=== PATIENT | female | born 1990 | race Caucasian/White ===

== ENCOUNTER 2019-09-14 13:43 | Outpatient (CLI) | payer OTHER, SELFPAY ==
--- NOTE | 2019-09-14 14:13 | ECHO_ITS ---
Patient Info Name: Sammie Rodriguez Age: 29 years : 1990 Gender: Female Ht: 59 in Wt: 128 lbs BSA: 1.57 m2 HR: 87 bpm BP: 121 / 81 mmHg Technical Quality: Good Exam Date: 09/14/2019 2:27 PM Exam Location: [facility] Patient Status: Outpatient Admit Date: 09/14/2019 Staff Ordering Physician: Gladys Chen PAC Apprentice Stylist: Anayeli Ramirez RDCS Attending Provider: Gladys Chen PAC Referring Physician: Gustavo LOW; Exam Type: CA echo doppler color flow Study Info Indications - SOB Complete two-dimensional, color flow and Doppler transthoracic echocardiogram is performed. Summary 1. Left ventricular chamber dimension is normal. 2. Left ventricular systolic function is normal, estimated at 65-70%. 3. The left ventricular diastolic function is normal. 4. E/e' 5 is not elevated. 5. There is trace tricuspid valve regurgitation. 6. No pulmonary hypertension, estimated pulmonary arterial systolic pressure is 25 mmHg. Left Ventricle E/e' 5 is not elevated. Left ventricular chamber dimension is normal. Left ventricular systolic function is normal, estimated at 65-70%. The left ventricular diastolic function is normal. Right Ventricle Right ventricular chamber dimension is normal. Right ventricular systolic function is normal. Left Atria Left atrial chamber dimension is normal. Right Atria Right atrial chamber dimension is normal. Aortic Valve The aortic valve is trileaflet. There is no aortic valve stenosis. There is no aortic valve regurgitation. Pulmonic Valve There is no pulmonic regurgitation. Mitral Valve There is no mitral valve stenosis. There is no mitral valve regurgitation. Tricuspid Valve There is trace tricuspid valve regurgitation. No pulmonary hypertension, estimated pulmonary arterial systolic pressure is 25 mmHg. Pericardium/Pleural There is no pericardial effusion. Inferior Vena Cava Normal inferior vena cava with >50% collapse upon inspiration consistent with normal right atrial pressure, 5 mmHg. Aorta The aortic root size at the sinus of Valsalva is normal. Left Ventricular Outflow Tract Name Value Normal LVOT 2D LVOT Diameter 2.0 cm LVOT Doppler LVOT Peak Gradient 5 mmHg LVOT Mean Gradient 3 mmHg LVOT VTI 22 cm LVOT VTI/AV VTI Ratio 0.9 LVOT Stroke Volume 68 ml LVOT CO 16.0 l/min LVOT CI 10.2 l/min/m2 Pulmonic Valve Name Value Normal PV Doppler PV Peak Gradient 3 mmHg Mitral Valve Name Value Normal
--- NOTE | 2019-09-17 12:35 | WPDHOLTEREM ---
Holter/Event Monitor Holter/Event Monitor Date of procedure: 09/14/19 Procedure Type: 24 hour holter monitor Indications: Palpitations Conclusion: 1. 24 hour holter monitor on 09/14/19. 2. Underlying rhythm is sinus rhythm. HR range 45-150 bpm; average HR 81 bpm. 3. There are no premature supraventricular complexes. No supraventricular tachycardia. 4. There is on premature ventricular complex. No ventricular tachycardia. 5. No sinoatrial blocks. Second degree AV block, type I (Wenkebach) at 01:52. No significant pauses greater than 2 seconds. 6. Patient reports symptoms of chest pain, palpitations, racing heart, shortness of breath and dizziness which demonstrate Sinus rhythm, HR range 54-98 bpm
== END 2019-09-14 13:44 | disposition home or self-care (01) ==
PROVIDERS: PCP Family Medicine; Visit Provider Physician Assistant Medical
DX: R00.2 Palpitations (principal); R06.02 Shortness of breath; Z86.79 Personal history of other diseases of the circulatory system
CPT/HCPCS: 93225; 93226; 93306

== ENCOUNTER → 2021-06-12 07:01 | Outpatient (CLI) | payer BC, SELFPAY ==
--- NOTE | ~2021-06-12 | XR_ITS ---
EXAMINATION: XR knee RT 2V DATE: 06/12/2021 07:43 INDICATION: Right knee pain. TECHNIQUE: 2 views of right knee standing were obtained. COMPARISON: None. FINDINGS: Bone alignment is normal. No fracture. Joint spaces are well maintained. There is no knee j oint effusion. IMPRESSION: 1. Normal right knee. Reviewed, dictated and finalized at location A. IMPRESSION: 1. Normal right knee.
--- NOTE | ~2021-06-12 | XR_ITS ---
EXAMINATION: XR knee LT 2V DATE: 06/12/2021 07:43 INDICATION: Left knee pain. TECHNIQUE: 2 views of left knee standing were obtained. COMPARISON: None. FINDINGS: Bone alignment is normal. No fracture. Joint spaces are well maintained. There is no knee j oint effusion. IMPRESSION: 1. Normal left knee. Reviewed, dictated and finalized at location A. IMPRESSION: 1. Normal left knee.
== END ==
PROVIDERS: PCP Family Medicine; Visit Provider Nurse Practitioner Family
DX: M25.561 Pain in right knee (principal); M25.562 Pain in left knee
CPT/HCPCS: 73560

== ENCOUNTER → 2021-09-13 14:41 | Outpatient (CLI) | payer BC, SELFPAY ==
--- NOTE | ~2021-09-13 | MR_ITS ---
EXAMINATION: MR knee LT wo con DATE: 09/13/2021 15:08 INDICATION: Left knee pain TECHNIQUE: Magnetic resonance imaging (MRI) of the left knee was performed without intravenous contra st. Sequences included coronal PD-weighted FSE, coronal PD-weighted FS FSE, sagittal T2-weighted FSE , sagittal PD-weighted FS FSE and axial PD weighted fat saturated FSE. COMPARISON: None. FINDINGS: Medial compartment: Medial meniscus is normal. Articular cartilage is normal. Lateral compartment: Lateral meniscus is normal. Articular cartilage is normal. Patellofemoral compartment: Heterogeneous cartilage signal suggesting partial thickness fissuring at the medial patellar facet wi thout degenerative subchondral changes. Trochlear cartilage is normal. Ligaments and tendons: Anterior and posterior cruciate ligaments are normal. The medial collateral ligament and fibular sierra ateral ligament complex are normal. The extensor mechanism is normal. The visualized medial and later al hamstring tendons as well as the iliotibial band are normal. Fluid: Physiologic amount of fluid in the joint space. No loose osteochondral bodies identified. Osseous/other: Normal marrow signal. No fracture or pathologic marrow replacing process. IMPRESSION: 1. Heterogeneous cartilage signal suggesting partial thickness chondral fissuring at the medial dasilva lar facet. Otherwise unremarkable left knee MRI. Reviewed, dictated and finalized at location A. IMPRESSION: 1. Heterogeneous cartilage signal suggesting partial thickness chondral fissuri ng at the medial patellar facet. Otherwise unremarkable left knee MRI.
== END ==
PROVIDERS: PCP Family Medicine; Visit Provider Nurse Practitioner Family
DX: M25.562 Pain in left knee (principal)
CPT/HCPCS: 73721

== ENCOUNTER 2021-10-02 13:13 | Outpatient (CLI) | payer BC, SELFPAY | END 2021-10-02 13:14 | disposition home or self-care (01) | LOC: ANHAUDIO 13:15 | PROVIDERS: PCP Family Medicine; Visit Provider Nurse Practitioner Family | DX: H91.90 Unspecified hearing loss, unspecified ear (principal) | CPT/HCPCS: 92557; 92567 ==

== ENCOUNTER 2024-05-22 12:19 | Outpatient (CLI) | payer OTHER, SELFPAY ==
--- NOTE | ~2024-05-22 | MM_ITS ---
EXAMINATION: MM diagnostic nasir BI w sahil HISTORY: Areas of tissue thickening TECHNIQUE: 3-D tomosynthesis images of the breasts were performed and synthetic 2-D images were gener ated. CAD analysis was submitted and interpreted. COMPARISON: None BREAST PARENCHYMAL COMPOSITION:Dense: The breasts are extremely dense, which lowers the sensitivity o f mammography. FINDINGS: No suspicious mass lesion or distortion seen in either breast. No suspicious microcalcifica tion. IMPRESSION: No mammographic evidence for malignancy. If there are true palpable abnormalities clinically, then fo llow-up targeted ultrasound would be advised. BI-RADS Category 1: Negative Reviewed, dictated and finalized at location M. IMPRESSION: No mammographic evidence for malignancy. If there are true palpable abnormaliti es clinically, then follow-up targeted ultrasound would be advised. BI-RADS Category 1: Negative
--- OUTSIDE RECORDS SUMMARY | 2024-05-22 12:33 | XMS_ITS | Continuity of Care Document ---
Author Organization [facility] Address [address] [place] [address] Phone Care Team Providers Care Plaster Patternmaker Name Role Phone Prashant ZHENG, Savita Unavailable Unavailable Kostas ROSARIO, Kyra Unavailable Unavailable Advance Directives Directive Yes / No Effective Date File Name No Information Encounters Encounter Description Practice Location Reason(s) For Visit Diagnoses Date Provider Providers Copied on Encounter [facility] [address], [place], [place], [id number], tel:[phone] [facility] No Information Prashant Barney. [address], [place], [place], [id number], . tel:[phone] Consulting Provider: Kyra Kenyon, [address], [place], [address]. tel:[phone] Family History Family Member Type Diagnosis Age At Onset No Information Payers Payer name Insurance type Covered republican ID Authoriza tion(s) No Information Social History Type Description Quantity Date Captured Comments Sex Female Smoking Status No Information Chief Complaint And Reason For Visit No Information Reason For Referral Reason For Referral No Information History Of Present Illness Encounter Date Complaint History Of Prese nt Illness No Information Functional Status Date Functional Assessmen t No Information Instructions Date Instruction Additional Infor mation No Information Assessments Type Assessment Date No Information Patient Care Teams Name Effective Dates (start - stop) Status Members No Information
--- OUTSIDE RECORDS SUMMARY | 2024-05-22 12:34 | XMS_ITS | Data Portability ---
Author Organization [facility] Wade Address [address] [place] [address] [place] [address] Care Team Providers Care Refractory Specialist Name Role Phone JESSICA ULLOA Primary Care Provider Assessment Encounter Date Assessment Date Assessment LastModified by Organization Details LastModified Time 10/15/2022 10/15/2022 Annual gynecological exam performed. Patient will come back in a year unless there are new symptoms. [email or web address] Not available 10/15/2022 15:34:47 05/08/2024 05/08/2024 Annual gynecological exam performed. Patient will come back in a year unless there are new symptoms. [email or web address] Not available 05/08/2024 12:25:46 Plan of Treatment Reminders Order Date Submit Date Provider Last Modified By Organization Details Last Modified Time Details Appointments None recorded. Lab None recorded. Referral None recorded. Procedures None recorded. Surgeries None recorded. Imaging MAMMO, diagnostic , digital, bilateral - bilateral breast lumps around 12 oclock [address], [address] Anjum Tillman, [facility] [address], [place], [address], 11:09:10 US, breast, bilateral, complete [address], [address] Anjum Till[address], [address], [place], [address], 11:09:11 Medication Orders None recorded. Patient TargetsNo targets recorded. Patient InstructionsNo instructions recorded. Reason for Referral None Reported. Results Created Date Observation Date Name Description Value Unit Range Abnormal Flag Note LastModifiedBy Organization Detail LastModifiedTime 03/13/19 22 03/13/2021 SURGI GERDA PATHO LOGY surgical pathology SEE RESULT S BELOW CASE REPOR T: Surgi gerda Patho logy Repor t Case: [id number] Autho charline saucedo Provi abdi: Christina Steinberg MoeTab, CNPhoebe Colle cted: 03/13 1202 Order ing Locat ion: [place] Patho logy Recei chichi: 03/14 0244 Patho logis t: Saleem Griffin MD Speci mens: A) - Vulva , Left, Left vulva at 8 o'mega ck B) - Vulva , Right , Right vulva at 2 o'mega ck FINAL DIAGN OSIS: A. Left vulva , 8:00, biops y: -Sebo rrhei c kerat osis. B. Right vulva , 12:00 , biops y: -Sebo rrhei c kerat osis. Elect sandor bennett by Saleem Griffin MD on 022 at 3:40 PM ----- ----- ----- ----- ----- ----- ----- ----- ----- ----- ----- ----- ----- ----- ----- ----- ----- ---- CLINI GERDA INFOR MATIO N: NOT PROVI DED MICRO SCOPI C DESCR IPTIO N: A micro scopi c exami natio n was perfo rmed. GROSS DESCR IPTIO N: A. Vulva , Left. The speci men is label ed with the patie nt's name, tad moore and L vulva r 8:00 . Recei chichi in forma angi is a 0.5 cm piece of white -spangler tissu e. The entir e speci men is submi tted in one casse tte. Gross ed by Gino saini B. Vulva , Right . The speci men is label ed with the patie nt's name, tad moore and R vulva 2:00 . Recei chichi in forma angi is a 0.5 cm piece of white -spangler tissu e. The entir e speci men is submi tted in one casse tte. Gross ed by Gino saini Not Available [facility] (Lab) [address], [place], [address], 03/15/2021 16:42:07 10/16/19 23 10/15/2022 IMAGE GUIDE D PAP AND HPV REGAR DLESS image guided Pap, HPV regardless of Pap result SEE RESULT S BELOW CASE REPOR T: Cytol ogy Gynec ologi gerda Repor t Case: [id number] Autho charline saucedo Provi abdi: Linnea Fowler NP Colle cted: 10/15 1547 Order ing Locat ion: [place] Patho logy Recei chichi: 10/16 0756 First Scree n: Alphonse anaya, Sal lindsay, CT Speci men: Scree ed Pap - Image d, Cervi x STATE MENT OF ADEQU ACY: Satis facto ry for evalu ation Trans forma tion zone compo nent prese nt FINAL DIAGN OSIS: Negat henry for Intra epith elial Amelia herr or Yamilex corcoran (NIL) . Elect sandor ernst franklyn d by Sal Garcia, CT on 023 at 4:52 PM ----- ----- ----- ----- ----- ----- ----- ----- ----- ----- ----- ----- ----- ----- ----- ----- ----- ---- HPV RESUL TS: HPV mRNA E6/E7 : No HPV mRNA Detec madi NOTE: This high risk HPV mRNA assay detec ts fourt een high- risk HPV types (16, 18, 31, 33, 35, 39, 45, 51, 52, 56, 58, 59, 66, 68) witho ut diffe renti ation . COMME NT: This speci men was revie wed by a Cytot echno logis t and/o r Patho logis t (as indic ated in this repor t) after evalu ation using the Thinp rep Imagi ng Syste m. CLINI GERDA INFOR MATIO N: Menst rual Statu s: LMP (if appli cable ): Clini gerda Histo ry/Pr eviou s Pap: Type of Neopl carlos a (if appli cable ): Signi fican t Clini gerda Findi ngs: Other Histo ry: Hormo ricardo (if appli cable ): PAP EDUCA ASHUTOSH L NOTE: The Pap Test is a scree ed test with an inher ent false negat henry rate. Liqui d-bas ed sampl ing may decre ase, but will not elimi tabatha, false negat henry resul ts. A negat henry resul t does not precl ude the prese nce and/o r devel opmen t of disea se, since the prese nce of abnor mal cells in the sampl e depen ds on the locat ion of the lesio n and sampl ing techn ique. Anoop nued regul ar scree ed is the best metho d of cance r preve ntion . If repor madi cytol ogic findi ng do not corre late with physi gerda and/o r histo rical findi ngs, furth er inves tigat ion is recom king d, as clini warren pinedo nted. Not Available [facility] (Lab) [address] [facility], [place], [address], 10/16/2022 17:56:02 05/08/19 25 05/08/2024 IMAGE GUIDE D PAP AND HPV REGAR DLESS image guided Pap, HPV regardless of Pap result SEE RESULT S BELOW CASE REPOR T: Cytol ogy Gynec ologi gerda Repor t Case: [id number] Autho charline g Provi abdi: Linnea Fowler, MARLYN Colle cted: 05/08 1324 Order ing Locat ion: [place] Patho logy Recei chichi: 05/11 1134 First Scree n: Ingrid Montano, [place] Patho logis t: Miguel Angel thornton, Compa solares MD Speci men: Yaron ward Pap - Image d, Cervi x STATE MENT OF ADEQU ACY: Satis facto ry for evalu ation Trans forma tion zone compo nent prese nt ----- ----- ----- ----- ----- ----- ----- ----- ----- ----- ----- ----- ----- ----- ----- ----- ----- ---- FINAL DIAGN OSIS: Negat henry for Intra epith elial Lesjessika n or Yamilex corcoran (NIL) . Infla mmato ry cell moya es (incl udes typic al repai r). 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 COMME NT: This speci men was revie wed by a Cytot echno logis t and/o r Patho logis t (as indic ated in this repor t) after evalu ation using the Thinp rep Imagi ng Syste m. CLINI GERDA INFOR MATIO N: Menst rual Statu s: LMP (if appli cable ): Clini gerda Histo ry/Pr eviou s Pap: Type of Neopl carlos a (if appli cable ): Signi fican t Clini gerda Findi ngs: Other Histo ry: Hormo ricardo (if appli cable ): PAP EDUCA ASHUTOSH L NOTE: The Pap Test is a scree ed test with an inher ent false negat henry rate. Liqui d-bas ed sampl ing may decre ase, but will not elimi tabatha, false negat henry resul ts. A negat henry resul t does not precl ude the prese nce and/o r devel opmen t of disea se, since the prese nce of abnor mal cells in the sampl e depen ds on the locat ion of the lesio n and sampl ing techn ique. Anoop nued regul ar scree ed is the best metho d of cance r preve ntion . If repor madi cytol ogic findi ng do not corre late with physi gerda and/o r histo rical findi ngs, furth er inves tigat ion is recom king d, as clini warren warra nted. Not Available [facility] (Lab) [address], [place], [address], 05/13/2024 15:42:48 05/08/19 25 05/08/2024 TRICH OMONA S VAGIN MELISSA (RRNA ) trichomonas vaginalis ribosomal RNA (rrna) Negati ve negati ve Not Available [facility] (Lab) [address] [facility], [place], [address], 05/13/2024 15:42:48 05/08/19 25 05/08/2024 CT/GC (MAYITO) , THINP REP VIAL chlamydia trachomatis, PCR Negati ve negati ve Not Available [facility] (Lab) [address] [place], [address], 05/13/2024 15:42:49 05/08/19 25 05/08/2024 CT/GC (MAYITO) , THINP REP VIAL neisseria gonorrhoeae, PCR Negati ve negati ve Not Available [facility] (Lab) [address] [place], [address], 05/13/2024 15:42:49 Result Notes None recorded. Problems Name Problem SNOMED Code Status Onset Date Resolution Date Notes Provider Name and Address Organization Details Recorded Time Vaginiti s and vulvovag initis Completed 201301/20/2021 Vaginiti s;Record ed Elsewher e: No Locat ion: [facility] S ource: EHR Psychologist Educational bri: N Practi ce ID: 0001 Gordon lable Time: 02:30:00 PM Imani Blandon [facility] 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 15:36:[address] Concept Completed 201601/20/2021 Encntr for general adult medical exam w/o abnormal findings ;Recorde d Elsewher e: No Locat ion: [facility] S ource: EHR Psychologist Educational bri: N Practi ce ID: 0001 Gordon lable Time: 02:30:00 PM Imani dee, [facility] 15:36:17 Screenin g for malignan t neoplasm of cervix Completed 201301/20/2021 Screenin g for malignan t neoplasm s of the cervix;R ecorded Elsewher e: No Locat ion: [facility] S ource: EHR Psychologist Educational bri: N Practi ce ID: 0001 Gordon lable Time: 01:00:00 PM Imani dee, [facility] 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 15:36:23 Microsco pic hematuri a [id number] Completed 201401/20/2021 MICROSCO PIC HEMATURI A;Record ed Elsewher e: No Locat ion: [facility] S ource: EHR Psychologist Educational bri: N Practi ce ID: 0001 Gordon lable Time: 10:15:00 AM Imani Blandon [facility] 15:36:11 Urinary tract infectio us disease [id number] Completed 201401/20/2021 Urinary tract infectio n, site not specifie d;Record ed Elsewher e: No [facility]at [facility] S ource: EHR Psychologist Educational bri: N Practi ce ID: 0001 Gordon lable Time: 10:15:00 AM Imani dee [facility] 15:36:44 Adult health examinat ion Completed 201401/20/2021 Routine Medical Exam;Rec orded Elsewher e: No Locat ion: [facility] S ource: EHR Psychologist Educational bri: N Practi ce ID: 0001 Gordon lable Time: 11:00:00 AM Imani dee [facility] 15:36:14 Herpes simplex [id number] Completed 201301/20/2021 Herpes simplex virus infectio n;Record ed Elsewher e: No Locat ion: [facility] S ource: EHR Psychologist Educational bri: N Practi ce ID: 0001 Gordon lable Time: 01:45:00 PM Imani dee [facility] 15:36:46 Blood in urine [id number] Completed 201401/20/2021 HEMATURI A NOS;Fausto rded Elsewher e: No Locat ion: [facility] S ource: EHR Psychologist Educational bri: N Jim ce ID: 0001 Gordon lable Time: 10:15:00 AM Imani Blandon luiz [facility] 1 15:36:15 Problem Notes None recorded. Procedures Surgical History Date Name Laterality Status Provider Name and Address Organization Details Recorded Time 3 Date of Last Pap Smear completed Xin Ross [facility] 05/08/2024 12:26:48 2 Vulvar Biopsy completed Christina Mora [facility] 04/10/2021 12:21:24 2 biopsy of vulva completed Katie Weems [facility] 06/06/2021 09:24:42 Imaging Results None recorded. Procedure Notes None recorded. Medical Equipment None Reported. Allergies No known drug allergies Medications Name Sig Start Date Stop Date Status Note LastModified by Organization Details LastModified Time prednison e 10 mg tablet TAKE 1 TABLET BY MOUTH THREE TIMES DAILY FOR 5 DAYS 10/15 completed Not Available Not Available Not Available azithromy sarthak 250 mg tablet TAKE 2 TABLETS BY MOUTH FOR 1 DAY THEN TAKE 1 TABLET BY MOUTH DAILY 05/08 completed Not Available Not Available Not Available valacyclo vir 500 mg tablet TAKE 2 TABLETS BY MOUTH EVERY DAY 01/23 completed Not Available Not Available Not Available Macrobid 100 mg capsule take 1 capsule by oral route every 12 hours with food 11/28 completed Prescrib ed Elsewher e: No Locat ion: [facility] M odify By: shane garcia DateTime : 07/21/19 10:15:00 AM Not Available Not Available Not Available Metrogel Vaginal 0.75 % (37.5 mg/5 gram) insert 1 applicat orful by vaginal route every day at bedtime 01/20 completed Prescrib ed Elsewher e: No Locat ion: [facility] M odify By: dianna street DateTime : 01/15/20 14 03:42:12 PM Not Available Not Available Not Available Valtrex 1 gram tablet Take 1 tablet every day by oral route for 5 days. 2024 active Not Available Not Available Not Avai lable Blisovi Fe 03/30 (28) 1 mg-20 mcg (21)/75 mg (7) tablet TAKE 1 TABLET BY MOUTH EVERY DAY 10/15 completed Not Available Not Available Not Available ID NOW COVID-19 Test Kit TEST DIRECTED TODAY 03/13 completed Not Available Not Available Not Available Vitals Date Recorded Body height Body mass index (BMI) Body weight Systolic blood pressure Diastolic blood pressure Provider Name and Address Organization Details Last Updated DateTime 03/13/2021 162.56 cm 22 kg/m2 43071.82 g 134 mm[Hg] 85 mm[Hg] Imani Blandon [facility] 2 10:47:56 Date Recorded Body height Body mass index (BMI) Body weight Systolic blood pressure Diastolic blood pressure Provider Name and Address Organization Details Last Updated DateTime 03/23/2021 162.56 cm 21.8 kg/m2 31323.23 g 122 mm[Hg] 78 mm[Hg] Imani Blandon [facility] 2 10:02:38 Date Recorded Body height Body mass index (BMI) Body weight Systolic blood pressure Diastolic blood pressure Provider Name and Address Organization Details Last Updated DateTime 06/06/2021 162.56 cm 22 kg/m2 01854.82 g 127 mm[Hg] 81 mm[Hg] Katie Weems [facility] 2 10:11:25 Date Recorded Body height Body mass index (BMI) Body weight Systolic blood pressure Diastolic blood pressure Provider Name and Address Organization Details Last Updated DateTime 10/15/2022 162.56 cm 23.3 kg/m2 57483.56 g 137 mm[Hg] 84 mm[Hg] Whitney Grace [facility] 3 15:34:58 Date Recorded Body height Body mass index (BMI) Body weight Systolic blood pressure Diastolic blood pressure Provider Name and Address Organization Details Last Updated DateTime 05/08/2024 162.56 cm 23 kg/m2 13001.38 g 128 mm[Hg] 88 mm[Hg] Xin Cody [facility] 12:26:20 Social History Question Answer Notes LastModified by Organizat ion Details LastModified Time Tobacco Smoking Status Never Smoker Richie dee, [facility] 03/23/2021 09:59:24 Do You Have An Advance Directive? No [email or web address] Information not available 01/23/2021 What Is Your Level Of Alcohol Consumption? Occasional Information not available 01/23/2021 How Many Years Have You Consumed Alcohol? 10 [email or web address] Information not available 01/23/2021 Are You Blind Or Do You Have Difficulty Seeing? No [email or web address] Information not available 01/23/2021 What Is Your Level Of Caffeine Consumption? Moderate [email or web address] Information not available 01/23/2021 How Much Tobacco Do You Chew? None [email or web address] Information not available 01/23/2021 In The 14 Days Before Symptom Onset, Have You Had Close Contact With A Laboratory-confir med COVID-19 While That Case Was Ill? No [email or web address] Information not available 01/23/2021 In The 14 Days Before Symptom Onset, Have You Had Close Contact With A Person Who Is Under Investigation For COVID-19 While That Person Was Ill? No Information not available 01/23/2021 Have You Been To An Area Known To Be High Risk For COVID-19? No [email or web address] Information not available 01/23/2021 Are You Deaf Or Do You Have Serious Difficulty Hearing? No [email or web address] Information not available 01/23/2021 What Type Of Diet Are You Following? REGULAR [email or web address] Information not available 01/23/2021 What Is The Highest Grade Or Level Of School You Have Completed Or The Highest Degree You Have Received? 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 Yes [email or web address] Information not available 01/23/2021 Do You Use Protection During Sex? No [email or web address] Information not available 01/23/2021 Do You Use Your Seat Belt Or Car Seat Routinely? Yes [email or web address] Information not available 01/23/2021 Do You Have Smoke And Carbon Monoxide Detectors In Your Home? Yes Information not available 01/23/2021 How Much Tobacco Do You Smoke? No [email or web address] Information not available 01/23/2021 Do You Feel Stressed (tense, Restless, Nervous, Or Anxious, Or Unable To Sleep At Night)? [id number] [email or web address] Information not available 01/23/2021 Do You Use Any Illicit Or Recreational Drugs? No [email or web address] Information not available 01/23/2021 Do You Use Sunscreen Routinely? Yes Information not available 01/23/2021 Have You Used IV Drugs? No [email or web address] Information not available 01/23/2021 Sex: Unknown Functional Status Question Answer Note LastModified by Organizat ion Details LastModified Time Do you have difficulty walking or climbing stairs? No [email or web address] Information not available 06/06/2021 Are you able to walk? [email or web address] Information not available 01/23/2021 Are you able to care for yourself? Yes [email or web address] Information not available 06/06/2021 Do you have difficulty dressing or bathing? No [email or web address] Information not available 06/06/2021 What is your exercise level? Moderate [email or web address] Information not available 01/23/2021 Mental Status None recorded. Family History Relationship Description Onset Age of this Age Resolved Age Notes LastModified by Organization Details LastModified Time Maternal Grandmother Diabetes mellitus [email or web address] Not available 2020 15:15:20 Maternal Grandmother High risk [email or web address] Not available 2020 09:37:37 Mother Anemia [email or web address] Not available 1 03/22/2020 15:15:27 Mother Malignant neoplasm of skin 50 [email or web address] Not available 04/12 12:18:17 Mother Depressive disorder [email or web address] Not available 2020 09:37:37 Mother High risk [email or web address] Not available 2020 09:37:37 Maternal Grandfather Depressive disorder [email or web address] Not available 2020 09:37:37 Paternal Grandmother High risk [email or web address] Not available 2020 09:37:37 Notes:Cancer risk form compl ete 01/09/2021 Medical History Condition Response Allergies (Food, seasonal, environmental ) Y Other N Breast Cancer N Drug/Latex Allergies/Reactions N Blood Transfusion N Dermatologic Disorders N Lung Disease N Defects or Inherited Disease N Breast Problem N Gestational Diabetes N Hematologic disorders N Anesthesia Complications N History of STI Y Deep Vein Thrombosis N Polycystic ovary syndrome N Anxiety Disorder N Autoimmune disease N Arthritis N Infertility N Polyps N Acid Reflux (GERD) N History of abnormal pap N Cancer N Stroke N Varicosities N Neurologic/Epilepsy N Endometriosis N High Cholesterol N Headaches N Fibromyalgia N Kidney Disease N Heart Problems Y Kidney or Bladder Problems N Thyroid Problems N GI Problems N Eating Disorder N Anemia N Art (IVF or FET) N Psychiatric Illness N Ovarian Cancer N Diabetes N Pulmonary (TB, Asthma) N Hepatitis/Liver Disease N No Past Medical History N Eczema N Urinary Tract Infection N Abuse/Domestic Violence N Asthma N Trauma/Violence N Depression/ depression N Heart Disease N Pre-Eclampsia N Hypertension N Osteoporosis N Thrombophilias N Gynecological History Statement/Question Response Abnormal Pap N Flow Moderate Date of Last Mammogram Date of LMP 04/27/2024 On BCP's at Conception? N N Was last menstrual period normal Y STIs/STDs Y HPV Vaccine N Duration of Flow (days) 5 Current Control Method Partner Vas ectomy Are cycles usually normal Y Frequency of Cycle (Q days) 28 Most Recent Bone Density Sexually Active? Y Menses Monthly Y Age of first menstrual cycle 12 Date of Last Pap Smear 10/15/2022 Sexual Problems? N LMP Approximate N Obstetrics History GPAL:G 0 P 0 0 0 0 Type Value Living 0 Total 0 Past Encounters Encounter ID Performer Location Encounter Start Date Encounter Closed Date Diagnosis/Indication Diagnosis SNOMED-CT Code Diagnosis ICD10 Code Diagnosis Note [id number] Christina Mora [place] [address] [address] 01/23/2021 09:27:57 01/23/2021 12:24:24 Gynecologic examination [id number] Z01.419 Take Calcium with Vitamin D 1200mg daily if not receiving in daily diet. It is strongly advised to have an annual flu shot and up can obtain at most pharmacies . If you have not had a TDap shot in the last 10 years you should obtain one as well. Discussed with patient & provided with informatio n regarding Gardisil vaccine to prevent the 4 strains for HPV that cause cervical cancer if under age 26. Encourage safe sexual practices, to use condoms and limit partners if not already in a monogamous relationsh ip. Do monthly self breast exams. Have mammogram yearly or every other year depending on family history. BRCA testing is now available for patients with strong genetic history of female cancer. If interested contact the office. Engage in daily exercise of low impact aerobic exercise 45-60 minutes 4-5 times weekly. Avoid tobacco and illicit drugs as well as using moderation with alcohol intake less than 1-2 8 oz beverages daily. This lifestyle behavior pattern will lead to less health conditions and longer life span. If BMI greater than 25 weight watchers or dietary consult advised. Patient received above instructio ns, and questions have been answered. If you have any questions please call or respond to this email. Patient was made aware of the patient portal and may obtain a paper copy of today's plan if desired. Premenstru al dysphoric disorder 419448 F32.81 Irritabili ty, anxiety, and mood swings for 7-10 days leading up to cycle with improvemen t upon cycle starting. Discussed treatment options including ocp and zoloft. Pt verbalized understand ing and would like to think about it. No thoughts of harming herself or others. Lesion of vulva [id number] N90.89 Discussed possible causes. Biopsy recommende d. Pt agrees and will schedule. [id number] Christina Mora [place] [address] [address] 03/13/2021 10:34:04 03/14/2021 18:07:18 Lesion of vulva [id number] N90.89 RTC in 1 week for follow up. [id number] Christina Mora [place] [address] [address] 03/23/2021 09:57:55 04/10/2021 16:09:56 Lesion of vulva [id number] N90.89 Doing well. Biopsy showed seborrheic keratosis. Discussed with patient. No follow up at this time. [id number] Christina Mora [place] [address],[place] [address] 06/06/2021 10:05:19 06/06/2021 15:01:20 Contraception care management [id number] Z30.9 Pt would like mostly for cycle and mood regulation . Discussed all options in great detail. Pt would like to start ocp. She is aware of the risks and benefits. She does have a history of heart block. I would like to contact her cardiologi st to get more details and their opinion on estrogen/p rogesteron e contracept ion. If they feel it is safe, pt will call us to send rx and start her pills on the first Saturday following the start of her period. She is aware it is not effective for control the first month. She is also aware of the importance of taking at the same time every day. Encouraged use of condoms as the pill does not protect against STD's. Will return in 3 months for med check. Consent was read and signed. Pt verbalized understand ing.Pt will call us in 1-2 weeks if she has not heard back from us or the cardiologi st. [id number] JESSI Tapia Wade [address],[facility] [place] [address] 10/15/2022 15:28:51 10/16/2022 10:25:53 Gynecologic examination [id number] Z01.419 Z11.51 Take Calcium with Vitamin D 1200mg daily if not receiving in daily diet. It is strongly advised to have an annual flu shot and up can obtain at most pharmacies . If you have not had a TDap shot in the last 10 years you should obtain one as well. Discussed with patient & provided with informatio n regarding Gardisil vaccine to prevent the 4 strains for HPV that cause cervical cancer if under age 26. Encourage safe sexual practices, to use condoms and limit partners if not already in a monogamous relationsh ip. Do monthly self breast exams. Have mammogram yearly or every other year depending on family history. BRCA testing is now available for patients with strong genetic history of female cancer. If interested contact the office. Engage in daily exercise of low impact aerobic exercise 45-60 minutes 4-5 times weekly. Avoid tobacco and illicit drugs as well as using moderation with alcohol intake less than 1-2 8 oz beverages daily. This lifestyle behavior pattern will lead to less health conditions and longer life span. If BMI greater than 25 weight watchers or dietary consult advised. Patient received above instructio ns, and questions have been answered. If you have any questions please call or respond to this email. Patient was made aware of the patient portal and may obtain a paper copy of today's plan if desired. WWEBC - partner with vasectomyn o hx of abnormal papspap updated todaySTI testing added to papblood STI testing declinedUT D with PCPRTC in 1 year or sooner if needed [id number] JESSI Tapia Wade [address] [address] 05/08/2024 12:18:00 05/08/2024 13:02:52 Gynecologic examination [id number] Z01.419 Z11.51 WWEBC - Partner with vasectomyP ap - done today per pt preference STI screen - gc/ct/tric h added to pap per requestRou addie labs - PCPRTC in 1 yr or sooner if needed It is strongly advised to have an annual flu shot and up can obtain at most pharmacies . If you have not had a TDap shot in the last 10 years you should obtain one as well. Discussed with patient & provided with informatio n regarding the HPV vaccine if applicable . Encourage safe sexual practices, to use condoms and limit partners if not already in a monogamous relationsh ip. Do monthly self breast exams. BRCA testing is now available for patients with strong genetic history of female cancer. If interested contact the office. Engage in regular exercise. Avoid tobacco and illicit drugs. This lifestyle behavior pattern will lead to less health conditions and longer life span. If BMI greater than 25 dietary consult advised. Questions answered. Breast lump [id number] N63 .0 Bilateral breast lumps noted around 12 oclockorde r given for diagnostic mammogram with u/s Health Concerns Section Related Observation LastModified by Organization Detai ls LastModified Time None Recorded Concern Status LastModified by Organization Details LastModified Time None Recorded Advance Directives Directive N: Payers Encounter Date Sequence Insurance Name Policy Number Policy Rushing Covered Member ID Rushing Member ID Guarantor Name 03/13/2021 1 [place] [id number] Sammie Gerson [id number] Sammie Gerson 03/23/2021 1 [place]) [id number] Sammie Gerson [id number] Sammie Gerson 06/06/2021 1 [place] [id number] Sammie Gerson [id number] Sammie Gerson 10/15/2022 1 [place] [id number] Sammie Gerson [id number] Sammie Gerson 05/08/2024 1 [facility] [id number] Sammie Gerson [id number] Sammie Gerson Notes Date Note Type Note Provider Name and Address Organization Details Recorded Time 03/13/2021 text/html Here for biopsy. Risks and benefits discussed. Consent read and signed. Christina dee [facility] 04/10/2021 12:36:34 03/23/2021 text/html Biopsy follow up . States site has healed well. Christina dee [facility] 04/10/2021 12:36:10 06/06/2021 text/html Here to discuss contraception options.Pt is mostly interested in cycle and mood regulation. Christina dee [facility] 06/06/2021 13:15:18 10/15/2022 text/html Annual GYNReport ed bypatient.Menstrual cycle:Normal menses Urinary symptoms:No hematuria; No incontinence Vulva:No genital lesion Vagina:Normal vaginal discharge Breast:No breast pain; No breast lump; No nipple discharge Current Contraception:Satis fied with current contraception; Partner had vasectomy Sexual complaints:No sexual complaints; No pain during intercourse; Normal libido Menopausal Symptoms:No menopausal symptoms; Normal vaginal lubrication Psychological symptoms:No depression; No anxiety; No PMDD Preventive measures:Encourage self breast examination; Encourage regular exercise; Encourage no tobacco use; Encourage regular mammograms starting age 40 JESSI Tapia [address], [place], [address], [facility] 10/16/2022 09:22:38 05/08/2024 text/html Annual GYNReport ed bypatient.Menstrual cycle:Normal menses Urinary symptoms:No hematuria; No incontinence Vulva:No genital lesion Vagina:Normal vaginal discharge Breast:No breast pain; No breast lump; No nipple discharge Current Contraception:Satis fied with current contraception; Partner had vasectomy Sexual complaints:No sexual complaints; No pain during intercourse; Normal libido Menopausal Symptoms:No menopausal symptoms; Normal vaginal lubrication Psychological symptoms:No depression; No anxiety; No PMDD Preventive measures:Encourage self breast examination; Encourage regular exercise; Encourage no tobacco use; Encourage regular mammograms starting age 40Notes:33yo wweBC - partner with vasectomyno h/o abnormal papslast pap 10/2022 : nilm, HPV (-) JESSI Tapia [address], [place], [address], [facility] 05/08/2024 12:53:18 OBGyn Episode No OBEpisode recorded.
--- OUTSIDE RECORDS SUMMARY | 2024-05-22 12:34 | XMS_ITS | Referral Summary ---
Author Organization [facility] Address [address] [place] [address] Care Team Providers Care Space Controller Name Role Phone Mumtaz Perez MD Primary Care Provider + [phone] Encounters Date Type Department Care Team Description 05/11/2024 8:30 AM COMMUNITY ASSOCIATE Office Visit [facility] Medical Group Cardiology [address] [facility] [address] [place] [address] Nayeli Betancourt MD Lipid screening (Primary Dx); Chest pain, unspecified type; HUGHES (dyspnea on exertion); Second degree atrioventricular block, Mobitz type I; Palpitations from Last 3 Months Allergies No known active allergies Medications famotidine (PEPCID) 20 mg tablet Take 1 tablet (20 mg total) by mouth 2 (two) times a day Active cetirizine (ZyrTEC) 10 mg tablet Take 1 tablet (10 mg total) by mouth daily Active Active Problems Problem Noted Date Diagnosed Date Chest pain 10/16/2019 Palpitations 10/16/2019 HUGHES (dyspnea on exertion) 10/16/2019 Second degree atrioventricular block, Mobitz typ e I 10/16/2019 Lipid screening 10/16/2019 Social History Tobacco Use Types Packs/Day Years Used Date Smoking Tobacco: Never Smokeless Tobacco: Never Alcohol Use Standard Drinks/Week Comments Yes 0 (1 standard drink = 0.6 oz pur e alcohol) Comments Unknown Sex and Gender Information Value Date Recorded Sex Assigned at Not on file Legal Sex Female 1:39 PM CDT Gender Identity Female 12/19/2019 11:11 AM CDT Sexual Orientation Straight 12/19/2019 11 :11 AM CDT Last Filed Vital Signs Vital Sign Reading Time Taken Comments Blood Pressure 118/74 05/11/2024 8:38 AM COMMUNITY ASSOCIATE Pulse 99 05/11/2024 8:38 AM COMMUNITY ASSOCIATE Temperature 37.1 C (98.8 F) 10/16/2019 2:32 PM CDT Respiratory Rate 18 12/29/2019 1:06 PM CDT Oxygen Saturation 98% 05/11/2024 8:38 AM COMMUNITY ASSOCIATE Inhaled Oxygen Concentration - - Weight 61.6 kg (135 lb 11.2 oz) 05/11/2024 8:38 AM COMMUNITY ASSOCIATE Height 149.9 cm (4' 11 ) 05/11/2024 8:38 AM COMMUNITY ASSOCIATE Body Mass Index 27.41 05/11/2024 8:38 AM COMMUNITY ASSOCIATE Plan of Treatment Not on file Procedures Procedure Name Priority Date/Time Associated Diagnosis Comments ELECTROCARDIOGRAM REPORT Routine 025 3:06 PM COMMUNITY ASSOCIATE Chest pain, unspecified type POCT LIPID PANEL Routine 05/11/2024 8:46 AM COMMUNITY ASSOCIATE Lipid screening from Last 3 Months Results * Electrocardiogram Report (05/11/2024 3:06 PM COMMUNITY ASSOCIATE) Nayeli Betancourt MD ECG ORDERABLES Teri l Result * POCT lipid panel (05/11/2024 8:46 AM COMMUNITY ASSOCIATE) Cholesterol, POC 134 mg/dL Comment:GLU = 132 HDL, POC 23 mg/dL Triglycerides, POC 171 mg/dL LDL Cholesterol POC 76 mg/dL Chol/HDL Ratio, POC 3.3 Non-HDL Cholesterol, POC 110 mg/dL Cholesterol Total, POC 134 mg/dL Capillary blood 05/11/2024 8 :46 AM COMMUNITY ASSOCIATE us Nayeli Betancourt MD POINT OF CARE TEST O RDERABLES Final Result from Last 3 Months Insurance [facility] CHOICE PLUS [facility] HMO/PPO Address: [address] [address] [facility] Address: [address] [place] [address] [facility] CHOICE PLUS [facility] HMO/PPO Address: [address] [address] [place] [address] Care Teams Space Controller Relationship Specialty Start Date End Date Mumtaz Perez MD PCP - General Family Medicine 10/01/19
--- OUTSIDE RECORDS SUMMARY | 2024-05-22 12:34 | XMS_ITS | Clinical Summary ---
Author Organization [facility] Address [address] [place] [address] Care Team Providers Care Crate Icer Name Role Phone Mumtaz Perez MD Primary Care Provider + [phone] Allergies No known active allergies Medications famotidine (PEPCID) 20 mg tablet Take 1 tablet (20 mg total) by mouth 2 (two) times a day Active cetirizine (ZyrTEC) 10 mg tablet Take 1 tablet (10 mg total) by mouth daily Active Active Problems Problem Noted Date Diagnosed Date Chest pain 10/16/2019 Palpitations 10/16/2019 HUHGES (dyspnea on exertion) 10/16/2019 Second degree atrioventricular block, Mobitz typ e I 10/16/2019 Lipid screening 10/16/2019 Encounters Date Type Department Care Team Description 05/11/2024 8:30 AM ZONING ENGINEER Office Visit [facility] Medical Group Cardiology [address] [facility] [address] [place] [address] Nayeli Betancourt MD Lipid screening (Primary Dx); Chest pain, unspecified type; HUGHES (dyspnea on exertion); Second degree atrioventricular block, Mobitz type I; Palpitations from Last 3 Months Surgical History Surgery Date Site/Laterality Comments WISDOM TOOTH EXTRACTION Medical History Medical History Date Comments No pertinent past medical history Chest pain Family History Medical History Relation Name Comments No Known Problems Father Hypertension Mother Relation Name Status Comments Father Alive Mother Alive Social History Tobacco Use Types Packs/Day Years [...] Orientation Straight 12/19/2019 11 :11 AM CDT Obstetrics History Last Filed Vital Signs Vital Sign Reading Time Taken Comments Blood Pressure 118/74 05/11/2024 8:38 AM ZONING ENGINEER Pulse 99 05/11/2024 8:38 AM ZONING ENGINEER Temperature 37.1 C (98.8 F) 10/16/2019 2:32 PM CDT Respiratory Rate 18 12/29/2019 1:06 PM CDT Oxygen Saturation 98% 05/11/2024 8:38 AM ZONING ENGINEER Inhaled Oxygen Concentration - - Weight 61.6 kg (135 lb 11.2 oz) 05/11/2024 8:38 AM ZONING ENGINEER Height 149.9 cm (4' 11 ) 05/11/2024 8:38 AM ZONING ENGINEER Body Mass Index 27.41 05/11/2024 8:38 AM ZONING ENGINEER Plan of Treatment Health Maintenance Due Date Last Done Comments Cervical Cancer Screening 1991 Depression Screening 1991 Hepatitis C Screening 1991 Varicella Vaccines (1 of 2 - 13+ 2-dose series) 06/23/2004 Regular Well Visit/Exam 18-64 06/23/2009 Covid-19 Vaccine ( season) 2023 04/14/2023, 03/19/2021, 06/14/2020, Additional history exists Influenza Vaccine (#1) 2023 DTaP/Tdap/Td Vaccine (8 - Td or Tdap) 10/20/2033 10/21/2023, 08/28/2005, 09/08/1996, Additional history exists Hepatitis B Screening Completed 09/03/1996 , 03/05/1996, 02/04/1996 HPV Vaccines Aged Out No longer eligi ble based on patient's age to complete this topic Pneumococcal vaccine <65 Aged Out No longer eligible based on patient's age to complete this topic Procedures Procedure Name Priority Date/Time Associated Diagnosis Comments ELECTROCARDIOGRAM REPORT Routine 025 3:06 PM ZONING ENGINEER Chest pain, unspecified type POCT LIPID PANEL Routine 05/11/2024 8:46 AM ZONING ENGINEER Lipid screening from Last 3 Months Results * Electrocardiogram Report (05/11/2024 3:06 PM ZONING ENGINEER) us Nayeli Betancourt MD ECG ORDERABLES Teri l Result * POCT lipid panel (05/11/2024 8:46 AM ZONING ENGINEER) Cholesterol, POC 134 mg/dL Comment:GLU = 132 HDL, POC 23 mg/dL Triglycerides, POC 171 mg/dL LDL Cholesterol POC 76 mg/dL Chol/HDL Ratio, POC 3.3 Non-HDL Cholesterol, POC 110 mg/dL Cholesterol Total, POC 134 mg/dL Capillary blood 05/11/2024 8 :46 AM ZONING ENGINEER us Nayeli Betancourt MD POINT OF CARE TEST O RDERABLES Final Result from Last 3 Months Insurance [facility] CHOICE PLUS Care Teams Crate Icer Relationship Specialty Start Date End Date Mumtaz Perez MD PCP - General Family Medicine 10/01/19
--- OUTSIDE RECORDS SUMMARY | 2024-05-22 12:34 | XMS_ITS | Continuity of Care Document ---
Author Organization [facility] Address [address] [place] [address] Phone Care Team Providers Care Mobile Home Installer Name Role Phone Isabel Roberts Unavailable Unavailable Advance Directives Directive Yes / No Effective Date File Name No Information Encounters Encounter Description Practice Location Reason(s) For Visit Diagnoses Date Provider Providers Copied on Encounter [facility], [address], [place], [place], [id number], [place] tel:[phone] [facility] No Information [phone] 1 Alejandra Hall. [address] , [address], [place], [address], [place]. tel:[phone] Family History Family Member Type Diagnosis Age At Onset No Information Payers Payer name Insurance type Covered democrat ID Authoriza tion(s) No Information Social History [...]
== END 2024-05-22 12:20 | disposition home or self-care (01) ==
LOC: ANHIMG 12:25
PROVIDERS: PCP Family Medicine; Visit Provider Nurse Practitioner
DX: N64.4 Mastodynia (principal)
CPT/HCPCS: 77062; 77066; G0279